=== PATIENT | male | born 1940 | race American Indian/Alaskan Native ===

== ENCOUNTER 2017-03-06 10:08 | Outpatient (CLI) | payer MEDICARE ==
--- NOTE | 2017-03-06 14:18 | Ultrasound Report ---
ULTRASOUND RENAL BILATERAL HISTORY: Nocturia. TECHNIQUE: transabdominal ultrasound with color Doppler interrogation. FINDINGS: The right kidney measures 9.1 x 4.0 x 4.9cm. Right renal cortex: 1.1cm. The left kidney measures 10.2 x 6.9 x 5.3cm. Left renal cortex: 1.7cm. Scans of the kidneys show normal renal contours. There is normal central calyceal clustering and good preservation of the cortical thickness. There is no evidence of mass or hydronephrosis. The views of the bladder and the region of the ureters appear normal. IMPRESSION: Unremarkable renal ultrasound.
--- NOTE | 2017-03-06 14:23 | Fluoroscopy Report ---
FLUOROSCOPY RETROGRADE UROGRAPHY History: Nocturia. Findings: Fluoroscopic images were obtained during retrograde injection of water-soluble contrast into the urethra. 46 fluoroscopic images were obtained. The penile urethra is normal. There is very poor distention of the bulbar urethra throughout this exam. A smooth, relatively high grade stricture is suspected in this area. I was unable to opacify the membranous and prostatic urethra proximal to this is assumed stricture. Impression: Stricture in the bulbar urethra is suspected.
== END 2017-03-06 10:09 | disposition home or self-care (01) ==
LOC: FLUORO 10:08
PROVIDERS: ATTEND Urology
DX: R35.1 Nocturia (principal)
CPT/HCPCS: 74420; 76770; Q9967; 51610; 74450

== ENCOUNTER 2017-04-22 11:46 | Day surgery (SDC) | payer MEDICARE ==
[2017-04-22] MEDS ORDERED: NACL BACTERIOSTATIC INFILTRATI ONE (12:10)
[2017-04-22 12:36] LABS: Basophils % (Auto) 1.6 % (0.0-1.8); Eosinophils % (Auto) 4.7 % (0.0-4.3); Hematocrit 41.4 % (35.5-45.6); Hemoglobin 13.3 gm/dl (11.8-15.2); Mean Corpuscular HGB Conc 32 % (32-34); Mean Corpuscular Volume 80 fl (84-94); Platelet Count 190 K/mm3 (140-440); Red Cell Distribution Width 16.8 % (13.2-15.2); White Blood Count 4.6 K/mm3 (4.5-11.0)
[2017-04-22 12:37] LABS: Mean Corpuscular Hemoglobin 26 pg (28-32)
[2017-04-22 12:49] LABS: Anion Gap 17 mmol/L; Blood Urea Nitrogen 12 mg/dL (9-20); Calcium 8.6 mg/dL (8.4-10.2); Carbon Dioxide 26 mmol/L (22-30); Chloride 103.8 mmol/L (98-107); Glucose 92 mg/dL (75-100); Sodium 140 mmol/L (137-145)
--- NOTE | 2017-04-22 12:56 | Anesthesia Consultation ---
Anesthesia Consult and Med Hx Date of service: 04/22/17 - Airway Anesthetic Teeth Evaluation: Partials ROM Head & Neck: Adequate Mental/Hyoid Distance: Adequate Mallampati Class: Class II Intubation Access Assessment: Probably Good - Pulmonary Exam CTA: Yes - Cardiac Exam Cardiac Exam: RRR - Pre-Operative Health Status ASA Pre-Surgery Classification: ASA3 Proposed Anesthetic Plan: General - Pulmonary Hx Smoking: Yes (STOPPED X 7 MONTHS- IRREGULAR SMOKER) SOB: Yes (mainly on exertion) Hx Sleep Apnea: Yes (DX SLEEP APNEA , NO CPAP USE) - Cardiovascular System Hx Hypertension: Yes (X 25 YRS) Hx Coronary Artery Disease: Yes (prior [facility] per EKG, Pt denies.) - Hematic Hx Anemia: Yes - Other Systems Hx Cancer: No - Additional Comments Anesthesia Medical History Comments: Cardiology has cleared patient. ECHO shows mild concentric hypertrophy with EF 50-55%.
[2017-04-22 12:57] LABS: Potassium TNR mmol/L (3.6-5.0)
[2017-04-22] MEDS ORDERED: PERCOCET 5/325 PO PRN (12:58)
[2017-04-22] MEDS ORDERED: DILAUDID IV PRN (12:58)
[2017-04-22] MEDS ORDERED: ZOFRAN IV PRN (12:58)
--- NOTE | 2017-04-22 12:58 | Anesthesia Day of Surgery ---
Anesthesia Day of Surgery - Day of Surgery Patient Examined: Yes Patient H&P Reviewed: Yes Patient is NPO: Yes
[2017-04-22] MEDS ORDERED: NACL 0.9% 1000 ML 1,000 ML IV SCH (13:00)
[2017-04-22] MEDS ORDERED: VERSED IV NR (13:00)
[2017-04-22] MEDS ORDERED: PEPCID IV NR (13:00)
[2017-04-22 13:29] LABS: Anion Gap 15 mmol/L; Blood Urea Nitrogen 12 mg/dL (9-20); Calcium 8.9 mg/dL (8.4-10.2); Carbon Dioxide 29 mmol/L (22-30); Chloride 104.6 mmol/L (98-107); Glucose 88 mg/dL (75-100); Potassium 4.2 mmol/L (3.6-5.0); Sodium 144 mmol/L (137-145)
[2017-04-22] MEDS ORDERED: ANCEF/STERILE WATER 2 GM/20 ML IV NR (13:30)
[2017-04-22] MEDS ORDERED: ZOFRAN ONE (14:33)
[2017-04-22] MEDS ORDERED: SUBLIMAZE ONE (14:33)
[2017-04-22] MEDS ORDERED: XYLOCAINE MPF 2% ONE (14:33)
[2017-04-22] MEDS ORDERED: DIPRIVAN 10 MG/ML IV ONE (14:33)
[2017-04-22] MEDS ORDERED: WATER FOR IRRIG STERILE IR ONE (14:48)
--- NOTE | 2017-04-22 15:20 | Fluoroscopy Report ---
Retrograde pyelogram: Urethral stricture. On the unenhanced images there is a small opacity adjacent to the L2-3 interspace on the right consistent with calculus. Injection of contrast on that side however demonstrates good opacification of the ureter with no evidence of obstruction or intraluminal filling defect. The intrarenal collecting system is normal and there is good drainage with no persistence of this opacification. Apparently no stone was removed according to the technologist notes. Injection of contrast on the left side demonstrates a normal ureter with incomplete but otherwise unremarkable intrarenal collecting system. Impression: No apparent renal calculus.
[2017-04-22] MEDS ORDERED: LOPRESSOR IV ONE (16:08)
--- NOTE | 2017-04-22 16:50 | Post Anesthesia Evaluation ---
- Post Anesthesia Evaluation Patient Participated: Yes Airway Patent: Yes Stable Respiratory Function: Yes Temp > 96.8F: Yes Pain Manageable: Yes Adequeate Hydration: Yes Anesthesia Complications: No
[2017-04-22 17:02] VITALS: BP 154/100
--- NOTE | 2017-04-30 08:09 | Post Operative Note ---
Date of procedure: 04/22/17 Pre-op diagnosis: usd Post-op diagnosis: same Findings: 2cm bulbar stx Procedure: cysto dviu brpg Anesthesia: GETA Surgeon: ROLY LOMELI Estimated blood loss: minimal Pathology: none Condition: stable Disposition: PACU (late entry due to DEXMA EHR failure, unable to enter notes )
--- NOTE | 2017-04-30 08:39 | Operative Report ---
UROLOGY OPERATIVE NOTE PREOPERATIVE DIAGNOSIS: Urethral stricture disease, recurrent. POSTOPERATIVE DIAGNOSIS: Urethral stricture disease, recurrent. PROCEDURE: Cystoscopy, DVIU, bilateral RPG. SURGEON: Pilo Sellers M.D. ANESTHESIA: General. SPECIMENS: None. ESTIMATED BLOOD LOSS: Minimal. COMPLICATIONS: None. FINDINGS: Extensive bulbar stricture measuring 2 cm dense, adequately opened. CLINICAL INDICATIONS: The patient was counseled RCBA, antibiotics, SCD, has a history of previous dilation and strictures, was having progressively lower stream over the past year, was counseled by his primary physician and questions and procedure discussed with patient prior to procedure. He understood. DESCRIPTION OF PROCEDURE: The patient was transferred to OR suite in supine position, anesthesia begun, dorsal lithotomy position, prepped and draped in our standard fashion. At this point, a 22-Beninese scope was passed. We saw the bulbar urethra, proximal penile urethra. Pinpoint opening. A Glidewire was passed under fluoroscopic visualization in the bladder. DVIU knife assembled, incision was made at 12 o'clock position, all the way to vascular tissue with some bleeding identified. The stricture was approximately 2 cm, we passed the scope in the bladder, pancystoscopy 30 and 70-degree lens demonstrated no tumors. Right UO with cannulated 8-Beninese cone-tipped catheter, contrast injected. Normal right distal ureter, proximal ureter, and renal pelvis. No filling defects or hydronephrosis. Retrograde on the left side was performed with similar normal findings. At this point, the scope was withdrawn, a 20-Beninese catheter was inserted. Balloon inflated. The patient was awakened and transferred to the post-anesthesia care unit in good and stable condition. JOB# [id number] ATS/NTS
== END 2017-04-22 17:59 | disposition home or self-care (01) ==
LOC: OR 11:46
PROVIDERS: ATTEND Urology
DX: N35.8 Other urethral stricture (principal); I10 Essential (primary) hypertension; I25.10 Atherosclerotic heart disease of native coronary artery without angina pectoris; D64.9 Anemia, unspecified; I25.2 Old myocardial infarction; Z98.890 Other specified postprocedural states; Z79.899 Other long term (current) drug therapy; Z88.8 Allergy status to other drugs, medicaments and biological substances; Z87.891 Personal history of nicotine dependence
CPT/HCPCS: 36415; 52276; 74420; 80048; 85025; A4217; C1758; C1769; J0690; J1170; J2250; J2405; J2704; J3010; J7030; Q9967